=== PATIENT | male | born 1975 | race Caucasian/White ===

== ENCOUNTER 2021-04-17 11:31 | Emergency (ER) | payer OTHER ==
[~2021-04-17] VITALS: Ht 167.6 cm; Wt 81.2 kg
[2021-04-17 11:35] VITALS: BP 154/99
--- NOTE | 2021-04-17 11:44 | NUR ---
Patient ambulated to bed 05 with steady/even gait.
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
--- NOTE | 2021-04-17 11:59 | NUR ---
YOVANA Shields is evaluating patient at bedside.
[2021-04-17] MEDS ORDERED: HYDROcodone/APAP 5/325 MG 1 TAB TAB PO ONE (12:05)
--- NOTE | 2021-04-17 12:11 | NUR ---
RAD at bedside
--- NOTE | 2021-04-17 12:20 | NUR ---
Patient transported to [facility] by WC
--- NOTE | 2021-04-17 13:18 | NUR ---
APPLIED ORTHOGLASS SPLINT AND PANCHO WRAPPED FROM PALM TO MID FOREARM.
[2021-04-17] MEDS ORDERED: IBUP-2213 PO (13:28)
[2021-04-17] MEDS ORDERED: ACET-8386 PO (13:28)
[2021-04-17 13:39] VITALS: BP 142/92
--- NOTE | 2021-04-17 13:39 | NUR ---
Patient discharged with v/s stable. Written and verbal after care instructions given and explained. Patient alert, oriented and verbalized understanding of instructions. Ambulatory with steady gait. All questions addressed prior to discharge. ID band removed. Patient advised to follow up with PMD. Rx of Ibuprofen, Hydrocodone/Acetaminophen given. Patient educated on indication of medication including possible reaction and side effects. Opportunity to ask questions provided and answered.
== END 2021-04-17 13:39 | disposition home or self-care (01) ==
LOC: MED 11:31
DX: S52.572A Other intraarticular fracture of lower end of left radius, initial encounter for closed fracture (principal); S01.81XA Laceration without foreign body of other part of head, initial encounter; Z79.899 Other long term (current) drug therapy; W05.1XXA Fall from non-moving nonmotorized scooter, initial encounter; Y93.89 Activity, other specified; Y92.89 Other specified places as the place of occurrence of the external cause; Y99.8 Other external cause status
CPT/HCPCS: 29125; 70450; 72050; 73090; 73110; 99284; Q0092

== ENCOUNTER 2021-07-15 08:24 | Emergency (ER) | payer OTHER ==
[~2021-07-15] VITALS: Ht 167.6 cm; Wt 90.7 kg
[~2021-07-15 08:24] MED LIST: ACET-8386 PO; IBUP-2213 PO
[2021-07-15 08:43] VITALS: BP 117/88
--- NOTE | 2021-07-15 08:52 | NUR ---
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
--- NOTE | 2021-07-15 08:54 | NUR ---
DR. ESTEBAN BEDSIDE EVALUATING PT
[2021-07-15] MEDS ORDERED: LORazepam 1 MG TAB PO ONE (09:00)
[2021-07-15] MEDS ORDERED: HYDROcodone/APAP 5/325 MG 1 TAB TAB PO ONE (09:00)
--- NOTE | 2021-07-15 09:25 | NUR ---
pt c/o chest pain radiating across chest since last night, describes as a tightness. pt daily etoh, had 2 beers this am before coming to er.
[2021-07-15 11:01] VITALS: BP 142/70
--- NOTE | 2021-07-15 11:02 | NUR ---
Patient discharged with v/s stable. Written and verbal after care instructions given and explained. Patient verbalized understanding. Ambulatory with steady gait. All questions addressed prior to discharge. Advised to follow up with PMD.
== END 2021-07-15 11:00 | disposition home or self-care (01) ==
LOC: MED 08:24
DX: R07.89 Other chest pain (principal); F15.10 Other stimulant abuse, uncomplicated; F10.10 Alcohol abuse, uncomplicated; Z79.899 Other long term (current) drug therapy
CPT/HCPCS: 71045; 99283; Q0092

== ENCOUNTER 2022-07-09 07:14 | Emergency (ER) | payer OTHER ==
[~2022-07-09] VITALS: Ht 167.6 cm; Wt 88.2 kg
[~2022-07-09 07:14] MED LIST changes: -ACET-8386 PO; +ACET-8905 PO
[2022-07-09 07:22] VITALS: BP 129/93
--- NOTE | 2022-07-09 07:27 | NUR ---
PT AMB TO BED 5.
[2022-07-09] MEDS ORDERED: KETOROLAC 30 MG/ML VIAL IM ONE (07:35)
--- NOTE | 2022-07-09 07:36 | NUR ---
BIB SELF C/O LEFT CHEST ABRASION WOUND & PAIN , DIFFICULTY BREATHING S/P FALL X 3 DAYS. UNKNOWN LOC. DENIES N/V/D; SKIN IS PINK/WARM/DRY; AAOX4 WITH EVEN AND STEADY GAIT; LUNGS CLEAR BL; HR EVEN AND REGULAR; PT DENIES ANY FEVER, SOB, OR COUGH AT THIS TIME; PATIENT STATES PAIN OF 8/10 AT THIS TIME; VSS; PATIENT POSITIONED FOR COMFORT; HOB ELEVATED; BEDRAILS UP X1; BED DOWN. ER MD MADE AWARE OF PT STATUS.
[2022-07-09] MEDS ORDERED: LIDOCAINE 5% 1 EA PATCH TP STA (07:41)
[2022-07-09] MEDS ORDERED: LIDOCAINE 5% 1 EA PATCH TP ONE (07:42)
[2022-07-09] MEDS ORDERED: TRAM-748 PO (07:59)
[2022-07-09] MEDS ORDERED: LID5T TP (07:59)
--- NOTE | 2022-07-09 08:10 | NUR ---
Patient discharged with v/s stable. Written and verbal after care instructions given and explained. Patient alert, oriented and verbalized understanding of instructions. Ambulatory with steady gait. All questions addressed prior to discharge. ID band removed. Patient advised to follow up with PMD. Rx of ULTRAM &LIDODERM given. Patient educated on indication of medication including possible reaction and side effects. Opportunity to ask questions provided and answered.
[2022-07-09 08:11] VITALS: BP 129/93
[2022-07-09] MEDS ORDERED: LIDOCAINE 5% 1 EA PATCH TP SCH (09:00)
== END 2022-07-09 08:10 | disposition home or self-care (01) ==
LOC: MED 07:14
DX: S20.20XA Contusion of thorax, unspecified, initial encounter (principal); Z79.899 Other long term (current) drug therapy; W05.2XXA Fall from non-moving motorized mobility scooter, initial encounter; Y93.89 Activity, other specified; Y92.89 Other specified places as the place of occurrence of the external cause; Y99.8 Other external cause status
CPT/HCPCS: 71111; 96372; 99283; J1885